=== PATIENT | female | born 1995 | race Caucasian/White ===

== ENCOUNTER 2024-07-05 06:09 | Inpatient (IN) ==
[2024-07-05] MEDS ORDERED: Nalbuphine 10 MG/ML 1 ML VIAL IV PRN (07:37)
[2024-07-05 08:29] LABS: ABS Lymphocytes 2.3 10^3/uL (1.0-4.8); ABS Monocytes 0.8 10^3/uL (0.0-0.9); ABS Neutrophils 7.2 10^3/uL (1.5-7.6); Eosinophil % 0.4 %; Hemoglobin 12.7 g/dL (11.5-14.3); Lymphocyte % 22.1 %; Mean Corpuscular Hemoglobin 32.5 pg (27-33); Mean Corpuscular Hgb Conc 33.4 g/dL (31-36); Mean Corpuscular Volume 97.3 fL (80-97); Mean Platelet Volume 8.2 fL (7.5-11.2); Platelet Count 212 10^3/uL (150-450); Red Blood Count 3.91 10^6/uL (3.63-4.92); Red Cell Distribution Width 14.1 % (12-17); White Blood Count 10.4 10^3/uL (3.8-11.8)
[2024-07-05] MEDS: Penicillin G Potassium IV 5,000,000 UNITS in NS 0.9% 100 ml BAG 100 ML IVPB ONE (08:56)
[2024-07-05] MEDS: Lactated Ringers 1000 ml BAG 1,000 ML IV ONE (08:56)
[2024-07-05 09:39] LABS: Urine Benzodiazepine Screen None Detected (None Detect); Urine Cannabinoids Screen None Detected (None Detect); Urine Opiates Screen None Detected (None Detect)
[2024-07-05] MEDS: Penicillin G Potassium IV 3,000,000 UNITS in NS 0.9% 100 ml BAG 100 ML IVPB SCH (13:06)
[2024-07-06] MEDS: Lactated Ringers 1000 ml BAG 1,000 ML IV SCH (02:38)
[2024-07-06] MEDS: Buffered Lidocaine 1% SYRIN 1 ml INTRADERM ONE (02:39)
[2024-07-06] MEDS: Oxytocin in LR 20,000 MILLI.UNIT/1,000 ML BAG IV SCH ×2 (12:32→22:29)
[2024-07-06] MEDS: OBEPIDURAL (200 ML) 200 ML EPIDURAL ONE (15:44)
[2024-07-06] MEDS ORDERED: Phenylephrine 40 mcg/mL 10mL (400mcg) SYRINGE IV PUSH PRN ×2 (16:44)
[2024-07-06] MEDS ORDERED: Sodium Citrate/Citric Acid LIQ 15 ML UDC PO PRN (16:44)
[2024-07-06 17:06] LABS: Urine Appearance Clear; Urine Bilirubin Negative (Negative); Urine Blood Negative (Negative); Urine Color Yellow; Urine Glucose Trace (Negative); Urine Ketones Negative (Negative); Urine Nitrite Negative (Negative); Urine Protein Negative (Negative); Urine Specific Gravity 1.027 (1.002-1.030); Urine Urobilinogen Negative (Negative)
[2024-07-06] MEDS: Lidocaine 1% VIAL 10 MG/ML 30 ML VIAL INJ PRN (21:15)
[2024-07-06] MEDS ORDERED: Lactated Ringers 1000 ml BAG 1,000 ML IV SCH (22:00)
[2024-07-06] MEDS: Witch Hazel PAD JAR TOPICAL PRN (22:11)
[2024-07-06] MEDS: Dibucaine 1% OINT 28.35 GM TUBE PR PRN (22:11)
[2024-07-07] MEDS: Lidocaine 1.5% EPI 1:200,000 30 ML SDV ONE (00:29)
[2024-07-07] MEDS: Phenylephrine 40 mcg/mL 10mL (400mcg) SYRINGE ONE (00:30)
[2024-07-07] MEDS: Lactated Ringers 1000 ml BAG 1,000 ML IV ONE (00:30)
[2024-07-07] MEDS: Lactated Ringers 1000 ml BAG 1,000 ML IV SCH (00:31)
[2024-07-07] MEDS: OBEPIDURAL (200 ML) 200 ML EPIDURAL SCH (00:31)
[2024-07-07 06:56] LABS: ABS Eosinophils 0.1 10^3/uL (0.0-0.5); ABS Lymphocytes 2.4 10^3/uL (1.0-4.8); ABS Monocytes 0.8 10^3/uL (0.0-0.9); ABS Neutrophils 6.8 10^3/uL (1.5-7.6); Eosinophil % 0.6 %; Hematocrit 33.2 % (35-45); Hemoglobin 11.3 g/dL (11.5-14.3); Lymphocyte % 23.6 %; Mean Corpuscular Hemoglobin 33.1 pg (27-33); Mean Corpuscular Hgb Conc 33.9 g/dL (31-36); Mean Corpuscular Volume 97.6 fL (80-97); Mean Platelet Volume 7.9 fL (7.5-11.2); Platelet Count 175 10^3/uL (150-450); Red Blood Count 3.41 10^6/uL (3.63-4.92); Red Cell Distribution Width 14.2 % (12-17)
[2024-07-07] MEDS ORDERED: Influenza Vaccine *TRI* 2024-25* 0.5 ML SYRINGE IM ONE (15:37)
[2024-07-07] MEDS: Influenza Vaccine *TRI* 2024-25* 0.5 ML SYRINGE IM ONE (15:41)
[2024-07-07] MEDS: Polyethylene Glycol 3350 17 GM PACKET PO PRN (19:21)
[2024-07-08 08:52] VITALS: BP 119/69
== END 2024-07-08 20:18 | disposition home or self-care (01) | DRG 806 ==
LOC: MCHOBOUT 06:09 → MCHOB 07:37
PROVIDERS: ADMIT Midwife; ATTEND Midwife